=== PATIENT | female | born 1960 ===

== ENCOUNTER 2022-05-07 11:45 | Inpatient (IN) | payer OTHER ==
[~2022-05-07] VITALS: Ht 162.6 cm; Wt 189.6 kg
[2022-05-07] MEDS ORDERED: OMEPRAZOLE MAGN20 MG PO (14:35)
[2022-05-07] MEDS ORDERED: LOTREL 10-20 M1 EACH PO (14:35)
[2022-05-07] MEDS ORDERED: METHIMAZOLE10 MG PO (14:36)
[2022-05-07] MEDS ORDERED: SYNJARDY 12.5-1 EACH PO (14:36)
[2022-05-07] MEDS ORDERED: BREO ELLIPTA 21 EACH IH (14:36)
[2022-05-07] MEDS ORDERED: CRESTOR20 MG PO (14:37)
[2022-05-07] MEDS ORDERED: KETOROLAC TROMET5 ML OP (14:37)
[2022-05-13] MEDS ORDERED: OMEPRAZOLE20 MG (08:35)
[2022-05-13] MEDS ORDERED: RALOXIFENE HCL60 MG (08:35)
== END 2022-05-16 14:08 | disposition home or self-care (01) | DRG 331 ==
LOC: SURH 05-13 05:38 → O/R 05-13 05:38 → SURH 05-13 07:00
PROVIDERS: ADMIT Colon & Rectal Surgery; ATTEND Colon & Rectal Surgery
PROC: 0DTN4ZZ Resection of Sigmoid Colon, Percutaneous Endoscopic Approach (ICD-10-PCS; 2022-05-13)
PROC: 4A1BXSH Monitoring of Gastrointestinal Vascular Perfusion using Indocyanine Green Dye, External Approach (ICD-10-PCS; 2022-05-13)
PROC: 0DJD8ZZ Inspection of Lower Intestinal Tract, Via Natural or Artificial Opening Endoscopic (ICD-10-PCS; 2022-05-13)
PROC: 0DBP4ZZ Excision of Rectum, Percutaneous Endoscopic Approach (ICD-10-PCS; principal; 2022-05-13 07:00)
DX: K57.32 Diverticulitis of large intestine without perforation or abscess without bleeding (principal)